=== PATIENT | female | born 1980 | race Caucasian/White ===

== ENCOUNTER 2024-04-03 13:48 | Emergency (ER) | payer OTHER, SELFPAY ==
[2024-04-03 13:50] VITALS: BP 165/107
--- NOTE | 2024-04-03 15:16 | ED.GENMED ---
History of Present Illness
General
Chief Complaint: Back Pain
Source: patient
Exam Limitations: none
Time Seen by Provider: 04/03/24 15:04
Travel History
Have you had any contact with someone who has COVID-19?: No
Do you have any symptoms of coronavirus? Fever > 100 degrees, chills, cough, shortness of breath, sore throat, loss of taste or smell, muscle aches, or headache?: No
History of Present Illness
History of Present Illness:
See MDM
Past History
Past History
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
ED Past Surgical History:
Social History
Tobacco: Non-smoker
Personal:
Living: with family
Employment: Not employed
Phy Exam
Physical Exam
Physical Exam:
See MDM
Course
Orders/Labs/Results
Orders:
Orders
04/03/24 15:13
CT Chest/abd/pelvis Angio W/wo Urgent
Comment: hx vertebral art dissection
Reason For Exam: mid back pain
0.9% Sodium Chloride 1000 ml [Nss] 1,000 ml IV BOLUS
Cyclobenzaprine HCl [Flexeril] 10 mg PO NOW STA
Ketorolac [Toradol] 30 mg IV NOW STA
04/03/24 15:16
Test Result ONCE
04/03/24 15:43
Complete Blood Count/With Diff Urgent
Comprehensive Metabolic Panel Urgent
HCG, Serum Qualitative Screen Urgent
Urinalysis Reflex To Culture Urgent
Date Specimen was Collected: 04/03/24
Time Specimen was Collected: 15:27
Abnormal Lab Results
04/03/24
15:43
RBC 3.98 L 10^6/uL
(4.20-5.40)
Hgb 11.8 L g/dL
(12.0-16.0)
Hct 35.3 L %
(37.0-47.0)
MPV 11.4 H fL
(7.4-10.4)
04/03/24 15:43
04/03/24 15:43
Vital Signs
Initial and Last Documented VS:
Initial Vital Signs
Temp Pulse Resp BP Pulse Ox
98.1 F 78 16 165/107 100
04/03/24 13:50 04/03/24 13:50 04/03/24 13:50 04/03/24 13:50 04/03/24 13:50
Last Documented Vital Signs
Temp Pulse Resp BP Pulse Ox
98.1 F 78 16 119/109 100
04/03/24 13:50 04/03/24 13:50 04/03/24 13:50 04/03/24 16:55 04/03/24 16:55
MDM/Problems Addressed
Differential Diagnosis Includes:
HPI and MDM Narrative:
43-year-old female presenting with mid back pain and decreased urinary sensation. Patient noted the symptoms over a week. She attributes this to musculoskeletal pain. She was doing a lot of cleaning on her hands and knees because her family have
a GI bug. Patient then got sick and noted that her back pain persisted and she was having trouble urinating. She describes her trouble urinating as decreased urinary sensation. She states she can urinate when she sits on the toilet and tries.
She denies any incontinence. She denies any bowel incontinence either. She denies any leg weakness or numbness. Patient called her PCP and she was sent to the hospital for evaluation. When I entered the room, patient ambulated without
difficulty. She is in no acute distress. She has mildly dry mucous membranes. I did discuss my low concern for spinal cord pathology or cauda equina syndrome given how well-appearing she has. Patellar reflexes +2 bilaterally. Patient does not
have any lumbar pain. In fact, it is midthoracic. With all this, spinal cord pathology is less likely. I did question her prior history of vertebral artery dissection. Patient states this was soon after a prior . This was many years
ago. Given her history of dissection, will obtain CT angiogram chest/ abdomen/ pelvis
Physical exam
General: Well appearing and non-toxic
HEENT: protecting airway. Mildly dry mucous extremities
Neck: appears supple
CV: No evidence of cyanosis
Resp: No accessory muscle use. Lungs clear
Back: Tenderness to bilateral power of mid thoracic musculature. No midline tenderness. No lumbar tenderness
Abd: Non-distended
Extremities: No deformities. Full range of motion and muscle strength in legs. Patellar reflexes +2 bilaterally
Neuro: alert
Psych: Normal affect
Skin: Intact
Problems Addressed including Acute and Chronic Conditions affecting care:
1. Back pain
Acuity: acute
Prognosis: stable
Details: Given her prior history, will obtain CT angiogram chest/abdomen/pelvis. Patient given Toradol and Flexeril
2. Decreased urination
Acuity: acute
Prognosis: stable
Details: Likely in setting of dehydration. Will obtain urinalysis and provide IV fluids and continue to reassess
Updates
CT negative for acute pathology. Patient feels comfortable going home. Discussed treating as possible musculoskeletal pain. Discussed bring her blood work and CT report to her PCP to discuss further workup if necessary
After the CT and fluids, patient states she felt the urge to urinate and was able to urinate without difficulty. Urinalysis negative
Differential Diagnosis (but not limited to): Musculoskeletal back pain, dehydration, thoracic aortic aneurysm
Testing considered: Lumbar MRI but she has no neurodeficits
Drug therapy (if applicable): OTC meds, please see d/c instruction regarding Rx drugs
Amount and/or Complexity of Data Reviewed
Clinical info obtained from: Patient
External data reviewed: N/A
Labs I independently reviewed (but not limited to): Electrolytes within normal limits
Radiology: The CT scan was personally and independently reviewed. In addition, official CT report reviewed.
Pulse Ox: not hypoxic
EKG independently reviewed: N/A
Res Habilitation Assistant: N/A
Critical Care: N/A
Risk of Complication:
Social Determinants of health: Good social support
Discussed with other providers: N/A
Escalation of Care includes Admit/Obs: After being observed in the Emergency Department, pt stable for discharge.
Occasional wrong word or 'sound a like' substitutions may have occurred due to the inherent limitations of voice recognition software. Read the chart carefully and recognize, using context, where substitutions have occurred.
*Critical Care Note
Total Time (30-74mins, 75-104mins- exclusive of procedures): Not Applicable
ED Attending Note
-
Portions of this chart may have been created with voice recognition software.� Occasional wrong word or��sound alike� substitutions may have occurred due to the inherent limitations of voice recognition software.
Discharge Plan
Departure
Patient Disposition: Home (Routine Discharge)
Date of Disposition: 04/03/24
Time of Disposition: 17:32
Patient with high blood pressure during this ER visit?: No
Discharge Problem:
Back pain
Instructions: Upper Back Pain (DC)
Prescriptions:
New
diclofenac potassium 50 mg tablet
50 mg PO BID Qty: 20 0RF
diazepam [Valium] 5 mg tablet
5 mg PO BID PRN (Reason: muscle spasm) Qty: 14 0RF
Referrals:
Meme Gonsales DO [Family Provider] -
Activity Restrictions/Additional Instructions:
Please return for any worsening symptoms.
You may return at any time if you have further concerns.
Please follow up with your doctor at the first available appointment, preferably this week.
Thank you for choosing [facility].
Interventions
Interventions:
*Risk Screen - Suicide Last Done: 04/03/24 15:36
*General Assessment Last Done: 04/03/24 15:36
*Neglect/Abuse Screening Last Done: 04/03/24 15:36
*ED COVID-19 Vaccine History Last Done: 04/03/24 15:36
ED-Musculoskeletal Assessment Last Done: 04/03/24 15:36
Discharge Date and Time
Print Language: NIUEAN
[2024-04-03 15:32] VITALS: BMI 30.7
[2024-04-03 15:35] VITALS: BP 140/85
[2024-04-03] MEDS: NSS 1000 IV (15:46)
[2024-04-03] MEDS: FLEXERIL 10 MG PO (15:49)
[2024-04-03] MEDS: TORADOL 30 MG IV (15:50)
[2024-04-03 15:53] LABS: % Basophils 0.6 % (0-2); % Eosinophils 3.3 % (0-6); % Immature Granulocytes 0.4 % (0-0.5); % Lymphocytes 25.3 % (20.5-51.1); % Monocytes 7.2 % (1.7-9.3); % Neutrophils 63.2 % (42.2-75.2); Absolute Eosinophils 0.2 10^3/uL (0-0.7); Absolute Lymphocytes 1.3 10^3/uL (1.2-3.4); Absolute Monocytes 0.4 10^3/uL (0.1-0.6); Absolute Neutrophils 3.3 10^3/uL (1.4-6.5); Hematocrit 35.3 % (37.0-47.0); Hemoglobin 11.8 g/dL (12.0-16.0); Mean Corp Hgb Conc. 33.4 g/dL (33.0-37.0); Mean Corpuscular Hgb 29.6 pg (27.0-31.0); Mean Corpuscular Volume 88.7 fL (81.0-99.0); Mean Platelet Volume 11.4 fL (7.4-10.4); Nucleated Red Blood Cells % 0 %; Platelet Count 192 10^3/uL (130-400); Red Blood Cell Count 3.98 10^6/uL (4.20-5.40); Red Cell Dist. Width 12.5 % (11.5-14.5); White Blood Cell Count 5.2 10^3/uL (4.8-10.8)
[2024-04-03 16:00] VITALS: BP 129/84
[2024-04-03 16:12] LABS: ALT (SGPT) 20 U/L (0-35); AST (SGOT) 26 U/L (14-36); Albumin 4.5 g/dl (3.5-5.0); Alkaline Phosphatase 48 U/L (38-126); Blood Urea Nitrogen 16 mg/dl (7-17); Calcium 9.2 mg/dl (8.4-10.2); Carbon Dioxide 28 mmol/L (22-30); Chloride 103 mmol/L (98-107); Estimated Creatinine Clearance 87 ml/min; Glucose 88 mg/dl (70-99); Potassium 4.3 mmol/L (3.5-5.1); Sodium 138 mmol/L (135-145); Total Bilirubin 0.5 mg/dl (0.2-1.3); Total Protein 7.1 g/dl (6.3-8.2); eGFR > 60.00
[2024-04-03 16:13] LABS: HCG, Serum Qualitative Screen Negative
[2024-04-03 16:25] LABS: Urine Albumin Negative (Neg - Trace); Urine Bilirubin Negative (Negative); Urine Character Slightly Cloudy (Clear); Urine Color Yellow; Urine Glucose Negative (Negative); Urine Ketone Negative (Negative); Urine Leukocyte Negative (Negative); Urine Nitrite Negative (Negative); Urine Occult Blood Negative (Negative); Urine Urobilinogen Negative (Neg - 1+)
[2024-04-03 16:55] VITALS: BP 119/109
== END 2024-04-03 17:47 | disposition home or self-care (01) ==
LOC: EMR 13:48
PROVIDERS: EMERGENCY PHYSICIAN Student in an Organized Health Care Education/Training Program; FAMILY PHYSICIAN Family Medicine
DX: M54.9 Dorsalgia, unspecified (principal)
CPT/HCPCS: 99284; 96374; 96361; 71275; 74174; 80053; 81003; 84703; 85025; Q9967

== ENCOUNTER → 2024-05-11 11:37 | Outpatient (REF) | payer OTHER, SELFPAY | LOC: WDC 11:37 | PROVIDERS: ATTENDING PHYSICIAN Obstetrics & Gynecology Gynecology; FAMILY PHYSICIAN Family Medicine | DX: Z12.31 Encounter for screening mammogram for malignant neoplasm of breast (principal) | CPT/HCPCS: 77063; 77067 ==